=== PATIENT | female | born 1975 | race Caucasian/White ===

== ENCOUNTER 2017-06-19 16:44 | Outpatient (CLI) | payer BC | END 2017-06-19 16:45 | disposition home or self-care (01) | LOC: BICULT 16:44 | PROVIDERS: ATTEND Internal Medicine Endocrinology, Diabetes & Metabolism | DX: E04.2 Nontoxic multinodular goiter (principal); E03.9 Hypothyroidism, unspecified ==

== ENCOUNTER 2017-11-13 19:09 | Emergency (ER) | payer BC ==
[2017-11-13 19:36] LABS: #Basophils 0.1 thou/uL (0.0-0.2); #Eosinphils 0.1 thou/uL (0.0-0.7); #Lymphocytes 2.4 thou/uL (1.20-3.40); #Monocytes 0.8 thou/uL (0.11-0.59); #Neutrophils 6.5 thou/uL (1.40-6.50); %Basophils 0.6 % (0.0-1.0); %Eosinophils 1.2 % (0.0-10.0); %Lymphocytes 24.6 % (21.0-51.0); %Monocytes 8.1 % (0.0-10.0); %Neutrophils 65.5 % (42.0-75.0); Hemoglobin 13.8 g/dL (12.0-16.0); Mean Corpuscular HGB CONC 34.3 g/dL (32.0-36.0); Mean Corpuscular Hemoglobin 30.5 pg (27.0-31.0); Mean Corpuscular Volume 88.7 fl (81.0-99.0); Mean Platelet Volume 6.4 fL (7.4-10.4); Platelet Count 332 thou/uL (130-400); RBC Distribution Width 12.1 % (11.5-14.5); Red Blood Cell (RBC) Count 4.52 mill/uL (4.20-5.40); White Blood Cell (WBC) Count 9.9 thou/uL (4.8-10.8)
[2017-11-13 19:57] LABS: ALT (SGPT) 41 U/L (8-55); AST (SGOT) 25 U/L (5-34); Albumin 4.2 g/dL (3.5-5.0); Alkaline Phosphatase 135 U/L (40-150); Anion Gap 12 mmol/L (10-20); BUN (Urea Nitrogen) 19 mg/dL (7.0-18.7); Bilirubin, Total 0.3 mg/dL (0.2-1.2); CK (CPK) 99 U/L (29-168); Calc. Creatinine Clearance 0 mL/min (70-130); Calcium 9.3 mg/dL (7.8-10.44); Carbon Dioxide 25 mmol/L (22-29); Chloride 106 mmol/L (98-107); Estimated GFR-MDRD 86; Globulin 3.1 g/dL (2.4-3.5); Glucose 98 mg/dL (70-105); Potassium 3.9 mmol/L (3.5-5.1); Protein, Total 7.3 g/dL (6.0-8.3); Sodium 139 mmol/L (136-145)
--- NOTE | 2017-11-13 19:57 | RAD ---
CHEST ONE VIEW 11/13/17 HISTORY: 42-year-old female with chest pain for three days. FINDINGS: Heart size is normal. The lungs are clear. No confluent pneumonia, overt edema or pleural effusion. IMPRESSION: No acute intrathoracic disease. POS: [facility]
[2017-11-13 20:01] LABS: Troponin I Less than 0.010 ng/mL (< 0.028)
[2017-11-13] MEDS ORDERED: Diazepam 5 MG TAB ONE (22:31)
[2017-11-13 23:28] LABS: Bilirubin Negative (Negative); Blood, Urine Negative (Negative); Clarity CLEAR (Clear); Glucose, Urine (Dipstick) Negative (Negative); Leukocyte Moderate (Negative); Nitrite Negative (Negative); Protein, Urine (Dipstick) Negative (Neg-Trace); Specific Gravity, Urine 1.018 (1.002-1.036); Urobilinogen 0.2 mg/dL (0.2-1.0)
[2017-11-13 23:29] LABS: Bacteria/HPF 2+ HPF (None Seen); Hyaline Casts/LPF 0-3 HYALINE CAST LPF (0-3 Hyaline); RBC/HPF None Seen HPF (0-3); Squamous Epithelial None Seen HPF (0-3); WBC/HPF 21-50 HPF (0-3)
[2017-11-13 23:31] LABS: Troponin I Less than 0.010 ng/mL (< 0.028)
[2017-11-14] MEDS ORDERED: Fentanyl 100 MCG/2 ML VIAL ONE ×3 (00:02→02:12)
--- NOTE | 2017-11-14 09:49 | CT ---
PRELIMINARY REPORT/[facility]/EMERGENCY AFTER HOURS PROCEDURE: EXAM: CT Angiography Chest With Intravenous Contrast CLINICAL HISTORY: 42 years old, female; Pain; Chest pain; Type not specified; Abdominal pain; Generalized; Patient HX: Er 20; F43 C/O l chest pain radiating down l arm and into back for the past three days. Pt reports pa in started while she was working out. Pt reports pain is worse with breathing. Pt reports SOB, ble sw elling, and sweating that started today. Pt denies smoking or cardiac HX. TECHNIQUE: Axial computed tomographic angiography images of the chest with intravenous contrast using pulmonary embolism protocol. MIP reconstructed images were created and reviewed. Coronal and sagittal reformatted images were created and reviewed. COMPARISON: No relevant prior studies available. FINDINGS: Pulmonary arteries: No pulmonary embolism. The pulmonary arteries are normal in size Aorta: No thoracic aortic aneurysm. No dissection. Lungs: No evidence of consolidation. No pulmonary edema. Pleural space: Unremarkable. No significant effusion. No pneumothorax. Heart: No cardiomegaly or significant pericardial effusion. Bones/joints: No acute fracture. No dislocation. Soft tissues: The soft tissues of the axilla, neck and chest wall are unremarkable. Lymph nodes: No enlarged lymph nodes. IMPRESSION: No evidence of pulmonary embolus. No evidence of acute pulmonary pathology. EXAM: CT Angiography Abdomen With Intravenous Contrast CLINICAL HISTORY: 42 years old, female; Pain; Chest pain; Type not specified; Abdominal pain; Generalized; Patient HX: Er 20; F42 C/O l chest pain radiating down l arm and into back for the past three days. Pt reports pa in started while she was working out. Pt reports pain is worse with breathing. Pt reports SOB, ble sw elling, and sweating that started today. Pt denies smoking or cardiac HX. TECHNIQUE: Axial computed tomographic angiography images of the abdomen with intravenous contrast. MIP reconstructed images were created and reviewed. Coronal and sagittal reformatted images were created and reviewed. COMPARISON: No relevant prior studies available. FINDINGS: Aorta: No thoracic aortic aneurysm. No dissection. Celiac trunk and mesenteric arteries: No acute findings. No occlusion or significant stenosis. Renal arteries: No acute findings. No occlusion or significant stenosis. Lung bases: No consolidation. Liver: Unremarkable. No mass. Gallbladder and bile ducts: Unremarkable. No calcified stones. No ductal dilation. Pancreas: Unremarkable. No ductal dilation. No mass. Spleen: Unremarkable. No splenomegaly. Adrenals: Unremarkable. No mass. Kidneys and ureters: Unremarkable. No hydronephrosis. No solid mass. Stomach and bowel: Unremarkable. No obstruction. No mucosal thickening. Intraperitoneal space: Unremarkable. No significant fluid collection. No free air. Bones/joints: No acute fracture. No dislocation. 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 No mass. Lymph nodes: No enlarged lymph nodes. IMPRESSION: No acute findings in the arteries of the abdomen. Thank you for allowing us to participate in the care of your patient. Dictated and Authenticated by: Jagdeep Pompa MD 11/14/2017 2:04 AM Central Time ([place] & [place]) FINAL REPORT CT PULMONARY ANGIO: Date: 11/13/17 Multiple axial tomograms obtained through the chest following pulmonary angio protocol with multiplan ar reconstruction and 3D postprocessing. FINDINGS/IMPRESSION: No evidence of pulmonary embolus. Lungs appear clear of focal infiltrate. I am in agreement with the preliminary report issued by [facility]. POS: [facility]
== END 2017-11-14 02:25 | disposition home or self-care (01) ==
LOC: ERS 19:09
DX: R07.89 Other chest pain (principal)
CPT/HCPCS: 36415; 71045; 71275; 80053; 81003; 81015; 82553; 83690; 84484; 85025; 85379; 93005; 96374; 96376; J3010